=== PATIENT | female | born 1945 | race Hispanic/Latino ===

== ENCOUNTER 2017-09-04 16:08 | Emergency (ER) | payer MEDICARE, OTHER ==
[~2017-09-04] VITALS: Ht 152.4 cm; Wt 108.9 kg
[2017-09-04] MEDS ORDERED: FENOFIBRATE48 MG PO (16:27)
[2017-09-04] MEDS ORDERED: VALSARTAN80 MG PO (16:27)
[2017-09-04] MEDS ORDERED: VESICARE10 MG PO (16:27)
[2017-09-04] MEDS ORDERED: PIOGLITAZONE HC15 MG PO (16:28)
[2017-09-04] MEDS ORDERED: ST. JOSEPH ASPI81 MG PO (16:28)
--- NOTE | 2017-09-04 18:49 | EKG ---
[facility] [address] [facility] [place] [address] Signed Normal sinus rhythm Normal ECG No previous ECGs available Confirmed by YESENIA DU MD ([id number]) on 09/04/2017 6:49:15 PM Electronically Signed By: YESENIA DU MD 09/04/17 1849 PATIENT NAME: MANNY VERGARA Electrocardiogram DATE OF : 47 PHYSICIAN: YESENIA DU MD REPORT #: [id number] REPORT IS CONFIDENTIAL AND NOT TO BE RELEASED WITHOUT AUTHORIZATION
== END 2017-09-04 17:35 | disposition home or self-care (01) ==
LOC: ED 16:08
DX: R07.2 Precordial pain (principal); E11.9 Type 2 diabetes mellitus without complications; I10 Essential (primary) hypertension; Z88.5 Allergy status to narcotic agent; Z88.8 Allergy status to other drugs, medicaments and biological substances; Z79.899 Other long term (current) drug therapy; Z79.82 Long term (current) use of aspirin
CPT/HCPCS: 71045; 80053; 81001; 84484; 85025; 93005; 93010; 99283

== ENCOUNTER 2021-07-24 10:43 | Emergency (ER) | payer MEDICARE, OTHER ==
[~2021-07-24] VITALS: Ht 152.4 cm; Wt 108.9 kg
[~2021-07-24 10:43] MED LIST: FENOFIBRATE48 MG PO; PIOGLITAZONE HC15 MG PO; ST. JOSEPH ASPI81 MG PO; VALSARTAN80 MG PO; VESICARE10 MG PO
[2021-07-24] MEDS ORDERED: BENZONATATE100 MG PO (12:13)
== END 2021-07-24 13:33 | disposition home or self-care (01) ==
LOC: ED 10:43
DX: J10.1 Influenza due to other identified influenza virus with other respiratory manifestations (principal); Z20.822 Contact with and (suspected) exposure to COVID-19; E11.9 Type 2 diabetes mellitus without complications; I10 Essential (primary) hypertension; E78.00 Pure hypercholesterolemia, unspecified; Z88.5 Allergy status to narcotic agent; Z88.8 Allergy status to other drugs, medicaments and biological substances; Z79.899 Other long term (current) drug therapy; Z79.82 Long term (current) use of aspirin
CPT/HCPCS: 71046; 87502; 99283-25; C9803; U0003